=== PATIENT | female | born 2000 | race Caucasian/White ===

== ENCOUNTER 2021-11-01 20:27 | Inpatient (IN) | payer MEDICAID ==
[~2021-11-01] VITALS: Ht 152.4 cm; Wt 92.8 kg
[2021-11-02] MEDS ORDERED: HALOPERIDOL 5 MG TABLET PO PRN (04:00)
[2021-11-02 05:06] VITALS: BP 114/74
[2021-11-02] MEDS ORDERED: IBUPROFEN 400 MG TABLET PO PRN (09:30)
[2021-11-02] MEDS ORDERED: ALBUTEROL SULFATE HFA 90 MCG/PUFF 8 GM INHALER IH PRN (09:30)
[2021-11-02] MEDS ORDERED: ONDANSETRON HCL 4 MG TABLET PO PRN (09:30)
[2021-11-02] MEDS ORDERED: ACETAMINOPHEN 325 MG TABLET PO PRN (09:30)
[2021-11-02] MEDS ORDERED: PETROLATUM,WHITE 28 GM JELLY TP PRN (09:30)
[2021-11-02] MEDS ORDERED: LOPERAMIDE HCL 2 MG CAPSULE PO PRN (09:30)
[2021-11-02] MEDS ORDERED: DOCUSATE SODIUM 100 MG CAPSULE PO PRN (09:30)
[2021-11-02] MEDS ORDERED: MAGNESIUM HYDROXIDE SUSPENSION 30 ML UDCUP PO PRN (09:30)
[2021-11-02] MEDS ORDERED: GuaiFENesin/D-METHORPHAN [SUGAR-FREE] 200-20MG/10 ML SYRUP UDCUP PO PRN (09:30)
[2021-11-02] MEDS ORDERED: NICOTINE 14 MG/24 HOUR PATCH TD PRN (09:30)
[2021-11-02] MEDS ORDERED: MAG HYDROX/AL HYDROX/SIMETH ES 30 ML SUSPENSION UDCUP PO PRN (09:30)
[2021-11-02] MEDS ORDERED: CloNIDine HCL 0.1 MG TABLET PO PRN (09:30)
[2021-11-02 09:33] VITALS: BP 110/63
[2021-11-02] MEDS ORDERED: PRAZ1CAP5 PO (10:20)
[2021-11-02] MEDS ORDERED: AMIT100T2 PO (10:20)
[2021-11-02] MEDS ORDERED: LAMO200T10 PO (10:20)
[2021-11-02] MEDS: LORazepam 2 MG TABLET PO PRN ×2 (10:42→15:44)
[2021-11-02] MEDS: LamoTRIgine 100 MG TABLET PO SCH ×2 (10:42→20:58)
[2021-11-02 16:08] VITALS: BP 106/60
[2021-11-02] MEDS: LURASIDONE HCL 60 MG TABLET PO SCH (16:55)
[2021-11-02] MEDS: PRAZOSIN HCL 1 MG CAPSULE PO SCH (20:58)
[2021-11-02] MEDS: AMITRIPTYLINE HCL 75 MG TABLET PO SCH (21:01)
[2021-11-03] MEDS: ZOLPIDEM TARTRATE 10 MG TABLET PO PRN ×2 (00:28→20:27)
[2021-11-03 00:45] VITALS: BP 18/97
[2021-11-03] MEDS: LamoTRIgine 100 MG TABLET PO SCH ×2 (07:53→20:27)
[2021-11-03 07:56] LABS: BASOPHILS % (AUTO) 0.5 % (0.0-2.0); EOSINOPHILS % (AUTO) 5.1 % (1.0-6.0); HEMATOCRIT 38.1 % (36-46); HEMOGLOBIN 12.9 g/dL (12.0-16.0); LYMPHOCYTES # (AUTO) 2.3 K/uL (1.0-4.8); LYMPHOCYTES % (AUTO) 35.7 % (22.0-44.0); MEAN CORPUSCULAR HEMOGLOBIN 28.3 pg (26.0-34.0); MEAN CORPUSCULAR HGB CONC 33.9 G/dL (31.0-37.0); MEAN CORPUSCULAR VOLUME 84 fL (80-100); MONOCYTES # (AUTO) 0.5 K/uL (0.1-1.0); MONOCYTES % (AUTO) 8.3 % (2.0-9.0); NEUTROPHILS # (AUTO) 3.2 K/uL (1.8-7.7); NEUTROPHILS % (AUTO) 50.4 % (40.0-70.0); PLATELET COUNT (AUTO) 306 K/uL (150-450); RED BLOOD CELL COUNT(AUTO) 4.56 MIL/uL (4.00-5.20); RED CELL DISTRIBUTION WIDTH 12.7 % (11.5-14.5)
[2021-11-03 08:13] VITALS: BP 124/68
[2021-11-03 08:22] LABS: ALANINE AMINOTRANSFERASE 17 U/L (12-78); ALKALINE PHOSPHATASE 86 U/L (46-116); ANION GAP 2 mmol/L (8-16); ASPARTATE AMINOTRANSFERASE 24 U/L (15-37); BILIRUBIN,TOTAL 0.4 mg/dL (0.1-1.0); CALCIUM, TOTAL 9.3 mg/dL (8.8-10.5); CARBON DIOXIDE 29 mmol/L (22-29); CHLORIDE 103 mmol/L (98-107); CHOL/HDL RATIO 3.4 (3.9-5.7); CHOLESTEROL 183 mg/dL (131-200); FREE T4 (FREE THYROXINE) 1.05 ng/dL (0.76-1.46); GLOMERULAR FILTR. RATE CALC > 60 mL/min (>60); GLUCOSE,RANDOM 86 mg/dL (70-110); HCG,QUANTITATIVE 1 mIU/mL (0-6); HDL CHOLESTEROL 54 mg/dL (40-60); LDL CHOL (CALC.) 122 mg/dL (0-130); POTASSIUM 4.8 mmol/L (3.5-5.1); SODIUM SERUM 134 mmol/L (136-145); THYROID STIMULATING HORMONE 1.22 uIU/mL (0.36-3.74); TOTAL PROTEIN, SERUM 8.1 g/dL (6.4-8.2); TRIGLYCERIDES 37 mg/dL (15-150); UREA NITROGEN, BLOOD 11 mg/dL (7-18)
[2021-11-03 08:25] LABS: HEMOGLOBIN A1C 5.1 % (3.8-5.6)
[2021-11-03 16:05] VITALS: BP 117/78
[2021-11-03] MEDS: LURASIDONE HCL 60 MG TABLET PO SCH (16:09)
[2021-11-03] MEDS ORDERED: LURA80TA2 PO (20:19)
[2021-11-03] MEDS ORDERED: CLON0.5T4 PO (20:19)
[2021-11-03] MEDS: PRAZOSIN HCL 1 MG CAPSULE PO SCH (20:27)
[2021-11-03] MEDS: AMITRIPTYLINE HCL 75 MG TABLET PO SCH (20:28)
[2021-11-04] MEDS: LORazepam 2 MG TABLET PO PRN ×3 (00:35→16:22)
[2021-11-04 01:20] VITALS: BP 116/65
[2021-11-04] MEDS: LamoTRIgine 100 MG TABLET PO SCH ×2 (07:41→20:25)
[2021-11-04 08:37] VITALS: BP 112/64
[2021-11-04 16:09] VITALS: BP 117/65
[2021-11-04] MEDS: LURASIDONE HCL 60 MG TABLET PO SCH (16:22)
[2021-11-04] MEDS: AMITRIPTYLINE HCL 75 MG TABLET PO SCH (20:24)
[2021-11-04] MEDS: PRAZOSIN HCL 1 MG CAPSULE PO SCH (20:25)
[2021-11-05 04:12] VITALS: BP 110/78
[2021-11-05] MEDS: LamoTRIgine 100 MG TABLET PO SCH (08:13)
[2021-11-05] MEDS: LORazepam 2 MG TABLET PO PRN (08:14)
[2021-11-05 08:35] VITALS: BP 108/67
[2021-11-05] MEDS ORDERED: AMIT100T2 PO (10:28)
[2021-11-05] MEDS ORDERED: LAMO100 PO ×2 (10:28)
[2021-11-05] MEDS ORDERED: PRAZ1CAP5 PO (10:28)
[2021-11-05] MEDS ORDERED: LURA80TA2 PO (10:28)
== END 2021-11-05 16:08 | disposition home or self-care (01) | DRG 753 ==
LOC: B2S 11-02 03:10 → B3A 11-02 13:15
PROVIDERS: ADMIT Psychiatry & Neurology Psychiatry; ATTEND Psychiatry & Neurology Psychiatry
DX: F31.4 Bipolar disorder, current episode depressed, severe, without psychotic features (principal); E87.1 Hypo-osmolality and hyponatremia; E66.9 Obesity, unspecified; F12.90 Cannabis use, unspecified, uncomplicated; F60.3 Borderline personality disorder; Z68.41 Body mass index [BMI] 40.0-44.9, adult; F43.12 Post-traumatic stress disorder, chronic; K58.9 Irritable bowel syndrome, unspecified; Z79.899 Other long term (current) drug therapy; Z91.52 Personal history of nonsuicidal self-harm; Z91.410 Personal history of adult physical and sexual abuse
CPT/HCPCS: 80053; 80061; 83036; 84436; 84439; 84443; 84702; 85025; Q9967